=== PATIENT | female | born 1995 | race Caucasian/White ===

== ENCOUNTER 2017-05-25 00:32 | Emergency (ER) | payer OTHER ==
[~2017-05-25] VITALS: Ht 160 cm; Wt 63.5 kg
[2017-05-25 00:36] VITALS: BP 119/78
[2017-05-25] MEDS ORDERED: ARIP5TAB8 PO (00:48)
[2017-05-25] MEDS ORDERED: BUPR-10 PO (00:48)
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
--- NOTE | 2017-05-25 01:00 | NUR ---
PT TO OF CH 1
--- NOTE | 2017-05-25 02:00 | NUR ---
Patient appears to be resting comfortably in chair. Vital Signs within normal limits. Respirations even and unlabored.
[2017-05-25 02:12] LABS: APPEARANCE,URINE HAZY (CLEAR); BILIRUBIN,URINE NEGATIVE (NEGATIVE); BLOOD, URINE NEGATIVE (NEGATIVE); COLOR,URINE YELLOW (YELLOW); LEUKOCYTE ESTERASE ,URINE 2+ (NEGATIVE); NITRITE, URINE NEGATIVE (NEGATIVE); PH,URINE 6.5 (5.0-9.0); UGLUCOSE NEGATIVE (NEGATIVE)
[2017-05-25 02:16] LABS: ANION GAP 11.5 (8-16); CARBON DIOXIDE 28.3 mmol/L (21-32); CHLORIDE 102 mmol/L (98-107); CREATININE 0.8 mg/dL (0.6-1.3); GFR ARICAN-AMERICAN 116 mL/min (>90); GLUCOSE 102 mg/dL (74-106); POTASSIUM 3.8 mmol/L (3.5-5.1); SODIUM SERUM 138 mmol/L (136-145); UREA NITROGEN, BLOOD 11 mg/dL (7-18)
[2017-05-25 02:21] LABS: ALBUMIN 3.7 g/dL (3.4-5.0); ASPARTATE AMINOTRANSFERASE 23 U/L (15-37); TOTAL BILIRUBIN 0.2 mg/dL (0.0-1.0)
[2017-05-25 02:21] LABS: BARBITURATE, URINE NEG. ng/ml (NEG <=200); BENZODIAZEPINE, URINE NEG. ng/mL (NEG <=200); CANNABINOID, URINE NEG. ng/mL (NEG <=50); COCAINE, URINE NEG. ng/mL (NEG <=300); OPIATE, URINE NEG. ng/mL (NEG <=2000); PHENCYCLIDINE SCREEN,URINE NEG. ng/mL (NEG <=25)
[2017-05-25 02:24] LABS: HEMATOCRIT 40.7 % (36-48); MEAN CORPUSCULAR HEMOGLOBIN 31 pg (27-31); MEAN CORPUSCULAR HGB CONC 34 g/dL (33-37); MEAN CORPUSCULAR VOLUME 91 fL (80-94); PLATELET COUNT (AUTO) 149 K/uL (140-450); RED BLOOD CELL COUNT(AUTO) 4.49 MIL/uL (4.20-5.40); RED CELL DISTRIBUTION WIDTH 11.6 % (11.6-13.7)
[2017-05-25 02:25] LABS: RBC,URINE 0-5 (RARE) /HPF (0-5)
[2017-05-25 02:26] LABS: WBC,URINE 20-60 /HPF (0-5)
[2017-05-25 02:27] LABS: ACETAMINOPHEN < 0.5 ug/ml (10-30); SALICYLATE < 2.8 mg/dL (2.8-20.0)
[2017-05-25 02:33] LABS: LYMPHOCYTES % (MANUAL) 27 % (20-46); MONOCYTES % (MANUAL) 3 % (5-12)
--- NOTE | 2017-05-25 03:00 | NUR ---
Patient appears to be resting comfortably in chair. Vital Signs within normal limits. Respirations even and unlabored.
--- NOTE | 2017-05-25 04:00 | NUR ---
Patient appears to be resting comfortably in chair. Vital Signs within normal limits. Respirations even and unlabored.
--- NOTE | 2017-05-25 04:24 | NUR ---
pt given food, ate 100%
[2017-05-25] MEDS ORDERED: cefTRIAXone 1,000 MG VIAL ONE (04:48)
--- NOTE | 2017-05-25 04:55 | NUR ---
PT MOVED TO BED 1
--- NOTE | 2017-05-25 06:00 | NUR ---
Patient appears to be resting comfortably in bed. Vital Signs within normal limits. Respirations even and unlabored.
--- NOTE | 2017-05-25 07:09 | NUR ---
Pt report given to PRISCILLA NG. Transfer of care at this time.
--- NOTE | 2017-05-25 08:35 | NUR ---
PT AMBULATES TO THE RESTROOM WITH HERNANDEZ BALL AND BACK TO ROOM 1 WITHOUT INCIDENT, PT COOPERATIVE, NO AGGRESSIVE BEHAVIOR NOTED
--- NOTE | 2017-05-25 08:57 | NUR ---
[facility] at bedside for transfer.
[2017-05-25 09:03] VITALS: BP 103/66
--- NOTE | 2017-05-25 09:03 | NUR ---
Patient to be transferred to [facility]. Is being transferred due to NEED HIGHER LEVEL OF CARE. Receiving facility has accepting physician and available space. ER physician has signed transfer form. Patient or responsible green party has agreed to transfer and signed form. Patient belongings inventoried and will be sent with patient. Copy of nursing notes, lab reports, EKG, Physicians Orders and X-rays to be sent with patient. Report called to receiving facility BY RUBY NG. [facility] ambulance service has been called for transfer. PT BEING TRANSPORTED VIA GURNEY
== END 2017-05-25 09:03 ==
LOC: MED 00:32
DX: R45.851 Suicidal ideations (principal); N39.0 Urinary tract infection, site not specified; F32.9 Major depressive disorder, single episode, unspecified; Z79.899 Other long term (current) drug therapy; Z88.0 Allergy status to penicillin
CPT/HCPCS: 36415; 80053; 80305; 81001; 81025; 85025; 87086; 93005; 96365; 99285; G0480; G0482; J0696

== ENCOUNTER 2023-02-13 22:05 | Emergency (ER) | payer MEDICAID, OTHER ==
[~2023-02-13] VITALS: Ht 134.6 cm; Wt 40.8 kg
[~2023-02-13 22:05] MED LIST: ARIP5TAB8 PO; BUPR-10 PO
[2023-02-13 22:10] VITALS: BP 111/94; PULSE 109; RESP 16; TEMP 98.2; O2SAT 99
[2023-02-13] MEDS ORDERED: HALOPERIDOL IM 5 MG/ML VIAL IM ONE (22:15)
[2023-02-13] MEDS ORDERED: HALOPERIDOL IM 5 MG/ML VIAL ONE (22:17)
[2023-02-13 22:51] LABS: BASOPHILS % (AUTO) 0.4 % (0.0-2.0); EOSINOPHILS % (AUTO) 0.5 % (0.0-4.0); HEMATOCRIT 38.3 % (36-48); LYMPHOCYTES # (AUTO) 1.4 K/uL (2.5-16.5); LYMPHOCYTES % (AUTO) 23.9 % (20.5-51.1); MEAN CORPUSCULAR HEMOGLOBIN 31 pg (27-31); MEAN CORPUSCULAR HGB CONC 34 g/dL (33-37); MEAN CORPUSCULAR VOLUME 91.2 fL (80-94); MONOCYTES # (AUTO) 0.3 K/uL (0.8-1.0); MONOCYTES % (AUTO) 5.5 % (1.7-9.3); NEUTROPHILS # (AUTO) 4.1 K/uL (1.8-7.7); NEUTROPHILS % (AUTO) 69.7 % (42.2-75.2); PLATELET COUNT (AUTO) 153 K/uL (140-450); RED CELL DISTRIBUTION WIDTH 14.1 % (11.6-13.7); WHITE BLOOD COUNT (AUTO) 5.9 K/uL (4.8-10.8)
[2023-02-13 23:07] LABS: ALANINE AMINOTRANSFERASE 19 U/L (12-78); ALBUMIN 3.8 g/dL (3.4-5.0); ALCOHOL, BLOOD 149 mg/dL (<10); ALKALINE PHOSPHATASE 95 U/L (50-136); ANION GAP 18.3 (8-16); ASPARTATE AMINOTRANSFERASE 21 U/L (15-37); CALCIUM 8.6 mg/dL (8.5-10.1); CARBON DIOXIDE 20.7 mmol/L (21-32); CHLORIDE 103 mmol/L (98-107); CREATININE 0.8 mg/dL (0.6-1.3); GFR ARICAN-AMERICAN 111 mL/min (>90); GFR NON ARICAN-AMERICAN 91 mL/min (>90); GLUCOSE 128 mg/dL (74-106); SODIUM SERUM 139 mmol/L (136-145); TOTAL BILIRUBIN 0.3 mg/dL (0.0-1.0); UREA NITROGEN, BLOOD 6 mg/dL (7-18)
[2023-02-13 23:12] LABS: ACETAMINOPHEN < 0.5 ug/ml (10-30); SALICYLATE < 2.8 mg/dL (2.8-20.0)
[2023-02-14] VITALS (8 sets, daily range): BP systolic 112; BP diastolic 72; PULSE 88; RESP 19; TEMP 98.6; O2SAT 99
[2023-02-14] MEDS ORDERED: NACL 0.9% 1,000 ML IV ONE (03:25)
[2023-02-14] MEDS ORDERED: KCL 20 MEQ IN 100 mL PREMIX 200 ML IV ONE (03:25)
[2023-02-14 04:27] LABS: AMPHETAMINE, URINE NEGATIVE ng/ml (NEG <=1000); BARBITURATE, URINE NEGATIVE ng/ml (NEG <=200); BENZODIAZEPINE, URINE NEGATIVE ng/mL (NEG <=200); CANNABINOID, URINE POSITIVE ng/mL (NEG <=50); COCAINE, URINE NEGATIVE ng/mL (NEG <=300); OPIATE, URINE NEGATIVE ng/mL (NEG <=2000); PHENCYCLIDINE SCREEN,URINE NEGATIVE ng/mL (NEG <=25)
[2023-02-14 07:34] LABS: ALANINE AMINOTRANSFERASE 19 U/L (12-78); ALBUMIN 3.4 g/dL (3.4-5.0); ALCOHOL, BLOOD < 3 mg/dL (<10); ALKALINE PHOSPHATASE 83 U/L (50-136); ANION GAP 12.1 (8-16); ASPARTATE AMINOTRANSFERASE 30 U/L (15-37); CALCIUM 8.1 mg/dL (8.5-10.1); CARBON DIOXIDE 21.4 mmol/L (21-32); CHLORIDE 106 mmol/L (98-107); CREATININE 0.6 mg/dL (0.6-1.3); GFR ARICAN-AMERICAN 154 mL/min (>90); GFR NON ARICAN-AMERICAN 127 mL/min (>90); GLUCOSE 105 mg/dL (74-106); POTASSIUM 3.5 mmol/L (3.5-5.1); SODIUM SERUM 136 mmol/L (136-145); TOTAL BILIRUBIN 0.3 mg/dL (0.0-1.0); TOTAL PROTEIN, SERUM 6.5 g/dL (6.4-8.2); UREA NITROGEN, BLOOD 4 mg/dL (7-18)
== END 2023-02-14 14:01 | disposition home or self-care (01) ==
LOC: MED 22:05
DX: R45.1 Restlessness and agitation (principal); R45.851 Suicidal ideations; F10.129 Alcohol abuse with intoxication, unspecified; F12.10 Cannabis abuse, uncomplicated; E87.6 Hypokalemia; E86.0 Dehydration; F32.9 Major depressive disorder, single episode, unspecified; Z88.0 Allergy status to penicillin; Z79.899 Other long term (current) drug therapy; Z20.822 Contact with and (suspected) exposure to COVID-19
CPT/HCPCS: 36415; 80053; 80305; 81025; 85025; 87426; 96365; 96366; 96372; 99285; G0480; G0482; J1630; J3480; J7030